=== PATIENT | male | born 1935 | race Caucasian/White ===

== ENCOUNTER 2017-05-17 19:59 | Emergency (ER) | payer OTHER ==
[2017-05-17 20:17] VITALS: RESP 20
[2017-05-17 20:37] LABS: BASOPHILS % (AUTO) 1 % (0-3); EOSINOPHILS % (AUTO) 3 % (0-9); HEMATOCRIT 41 % (39-53); HEMOGLOBIN 13.8 gm/dl (13.5-17.7); LYMPHOCYTES % (AUTO) 29.3 % (10-50); MEAN CORPUSCULAR HEMOGLOBIN 32.3 pg (27.0-32.0); MEAN CORPUSCULAR HGB CONC 33.5 gm/dl (32.0-36.0); MEAN CORPUSCULAR VOLUME 96 fL (80-100); MONOCYTES % (AUTO) 5.7 % (0-12)
[2017-05-17 20:45] LABS: CALCIUM 8.6 mg/dl (8.5-10.1); CARBON DIOXIDE 28.6 mEq/L (21-32); CREATININE 1.16 mg/dl (0.80-1.30); POTASSIUM 3.8 mMol/L (3.5-5.1)
[2017-05-17 21:22] LABS: APPEARANCE,URINE Cloudy; BILIRUBIN,URINE 1+ (NEGATIVE); GLUCOSE, URINE (UA) NEGATIVE (NEGATIVE); KETONES,URINE TRACE (NEGATIVE); LEUKOCYTE ESTERASE ,URINE NEGATIVE (NEGATIVE); NITRATE,URINE NEGATIVE (NEGATIVE); OCCULT BLOOD,URINE 3+ (NEG-TRACE)
[2017-05-17 21:30] VITALS: BP 146/80; PULSE 72; TEMP 97.5; O2SAT 96
[2017-05-17 21:30] LABS: COLOR,URINE REDDISH BROWN
[2017-05-17 21:31] LABS: BACTERIA 1+ (< 1+); CRYSTALS NEGATIVE (0-3 AVE/HPF); ICTOTEST,URINE NEGATIVE (NEGATIVE); RBC,URINE 75-80 (0-3AV/HPF)
[2017-05-17 21:42] LABS: HEMOGLOBIN A1C 5.7 % (4.8-6.0)
== END 2017-05-17 22:12 | disposition home or self-care (01) | DRG 696 ==
LOC: ED 19:59
DX: R31.9 Hematuria, unspecified (principal)
CPT/HCPCS: 36415; 80048; 81001; 83036; 85025; 87088; 99282

== ENCOUNTER 2018-08-17 08:44 | Day surgery (SDC) | payer OTHER, MEDICARE ==
[2018-08-17] MEDS ORDERED: ACETAZOLAMIDE 250 MG PO ONE (09:01)
[2018-08-17] MEDS: CYCLOPENTOLATE 1% SOL ONE ×2 (09:15→09:28)
[2018-08-17] MEDS: PHENYLEPHRINE HCL 10% OPHTHAL SOL ONE ×2 (09:15→09:28)
[2018-08-17] MEDS: KETOROLAC 0.5% OPTH 60 DROP SOL ONE ×2 (09:15→09:28)
[2018-08-17] MEDS: TETRACAINE HCL 0.5 % 1 DROP SOL ONE ×3 (09:15→10:26)
[2018-08-17] MEDS ORDERED: MIDAZOLAM 2 MG/2 ML SOL ONE (10:03)
[2018-08-17] MEDS ORDERED: FENTANYL 100MCG/2ML SOL ONE (10:03)
[2018-08-17] MEDS ORDERED: IMPRIMIS ONE (10:19)
[2018-08-17] MEDS ORDERED: BSS 500 ML 500 ML IR ONE (10:19)
[2018-08-17] MEDS ORDERED: POVIDONE IODINE 5% SOL ONE (10:19)
[2018-08-17] MEDS ORDERED: LIDOCAINE HCL 1% MPF 30 SOL ONE (10:19)
[2018-08-17 10:51] VITALS: BP 146/79; PULSE 52; RESP 20; TEMP 96.6; O2SAT 99
== END 2018-08-17 11:10 | disposition home or self-care (01) | DRG 125 ==
LOC: SURG 08:44
PROVIDERS: ATTEND Ophthalmology
DX: H25.89 Other age-related cataract (principal)
CPT/HCPCS: J2250; J3010; A9270-GY; J2001